=== PATIENT | male | born 1975 | race Caucasian/White ===

== ENCOUNTER 2021-05-25 21:56 | Emergency (ER) | payer OTHER, MEDICAID, SELFPAY ==
[2021-05-25 22:14] VITALS: BP 137/85; PULSE 102; RESP 16; TEMP 37; O2SAT 99; BMI 27.7
--- NOTE | 2021-05-26 01:22 | ED_ITS ---
HPI - Skin/Abscess/Foreign Bdy General Chief complaint: Skin/Abscess/Foreign Body Stated complaint: lump on right arm Time Seen by Provider: 05/26/21 01:22 Source: patient Mode of arrival: Ambulatory Limitations: no limitations History of Present Illness HPI narrative: Patient has a lump on his right forearm. Patient states he has had chronic swelling at that location. He bumped it multiple times recently it became more swollen and red and inflamed and painful. Swelling is improved somewhat but is still present. He does not appreciate any fevers. He has had some localized swelling but no swelling at the elbow joint itself and not extending up and down the arm. Patient denies other medical issues. He does occasionally use IV methamphetamines. He does not believe he has injected at that location in the past. He denies any allergies to medications. No major surgeries. Daily smoker. Occasional alcohol. Related Data Previous Rx's Medication Instructions Recorded sulfamethoxazole 800 1 tab PO Q12H #20 tab 05/26/21 mg-trimethoprim 160 mg tablet (Bactrim DS) Allergies Allergy/AdvReac Type Severity Reaction Status Date / Time No Known Drug Allergies Allergy Verified 05/25/21 22:13 Review of Systems Review of Systems ROS Unobtainable: All systems reviewed & are unremarkable except as noted in HPI and below Patient History Social History Smoking Status: Current every day smoker Smoking Status: Current every day smoker alcohol intake frequency: a few times a month Substance Use Type: IV drugs and methamphetamine Exam Narrative Exam Narrative: GENERAL: Alert and oriented x three, male in mild distress. HEENT: Head normocephalic, atraumatic, EOMI, pupils reactive, face symmetric, moist mucous membranes NECK: Supple, full range of motion CARDIOVASCULAR: Regular rate and rhythm without murmurs, rubs or gallops. RESPIRATORY: Breath sounds equal bilaterally, no wheezes rales or rhonchi. ABDOMEN: Soft, nontender. Normoactive bowel sounds all 4 quadrants. No guarding or rebound, rigidity, no mass EXTREMITIES: Normal range of motion, no clubbing or edema. Neurovascularly intact. Patient has localized swelling, erythema and fluctuance of the proximal forearm approximately 4 cm from the elbow. Patient does not have any obvious wounds. Area is tender. There is some slight warmth. Patient is otherwise normal motion. No bony tenderness. The joint itself does not appear swollen. Patient has 5/5 muscle strength with normal sensation. In 2+ radial pulse. NEUROLOGICAL: Cranial nerves II through XII grossly intact. Moving all extremities SKIN: Warm, dry, no petechiae, no rashes or lesions otherwise noted. Initial Vital Signs Initial Vital Signs: Vital Signs Temperature 98.6 F 05/25/21 22:14 Pulse Rate 102 H 05/25/21 22:14 Respiratory Rate 16 05/25/21 22:14 Blood Pressure 137/85 05/25/21 22:14 Pulse Oximetry 99 05/25/21 22:14 Procedures Abscess I/D I&D #1: Site: upper extremity (right forearm) Side (if applicable): right Sedation/analgesia: none Local Anesthetic: lidocaine 1% Technique: needle aspiration and incised with #11 blade Amount of fluid expressed (mL): 4 Irrigation: Yes Packing used?: none Course Orders Ordered: ED Orders 05/26/21 01:30 XR elbow RT min 3V Stat 05/26/21 02:15 Wound Culture and Gram Stain Stat Discontinued Medications Ibuprofen (Ibuprofen 400 Mg Tablet) 800 mg PO NOW ONE Stop: 05/26/21 02:10 Last Admin: 05/26/21 02:15 Dose: 800 mg Documented by: LEYDI Lidocaine/Sodium Bicarbonate (Lido 1%/Sod Bicarb 8.4% (10ml) 10 Ml Syringe) 10 ml INJ NOW ONE Stop: 05/26/21 01:31 Last Admin: 05/26/21 02:15 Dose: 10 ml Documented by: LEYDI Trimethoprim/Sulfamethoxazole (Trimeth/Sulfa 160/800 Prepack) 1 bottle MISC SEEINSTR ONE Stop: 05/26/21 01:31 Last Admin: 05/26/21 02:16 Dose: Not Given Documented by: LEYDI Trimethoprim/Sulfamethoxazole (Trimeth/Sulfa 160/800 (Ds) Tablet) 1 tab PO NOW ONE Stop: 05/26/21 01:59 Last Admin: 05/26/21 02:15 Dose: 1 tab Documented by: LEYDI Vital Signs Vital signs: Vital Signs - 8 hr 05/25/21 22:14 05/26/21 02:32 Temperature 98.6 F 98.2 F Pulse Rate 102 H 80 Respiratory Rate 16 16 Blood Pressure 137/85 129/77 Pulse Oximetry 99 100 MDM - Skin/Abscess/Foreign Bdy Imaging Data bedside US: My Impression: Patient does appear to have non complex fluid collection but there appears to be some hyperechoic change at the base. Unclear if this is soft tissue changes or possibly foreign body. Extremity x-ray #1: My Impression: prelim, no foreign body. No fx. No air. [facility] Narrative Medical decision making narrative: This is 45 year old male with abscess in left forearm with localized cellulitis. I&D with good drainage. Culture sent. Discharge Plan Departure Patient Disposition: Home Clinical Impression: Abscess of skin or subcutaneous tissue Instructions: DI for Skin Abscess Activity Restrictions/Additional Instructions: Follow-up for recheck in the next 2-3 days if not significantly improving. You may take Tylenol up to a 1000 mg every 8 hours and/or ibuprofen up to 800 mg every 8 hours. Take antibiotics until completely gone. Prescription sent to [facility] in [place]. Wound Care: Keep wound(s) clean and dry. Wash daily with soap and water only. Do not use over the counter products (alcohol or peroxide)on the wounds unless instructed by a physician. If wound condition worsens (increased/expanding redness, developing fluid blisters, or worsening pain), either contact your doctor for an urgent re- assessment , or return to the Emergency Department. Return if fever greater than 100.4 Fahrenheit, increased swelling, increasing pain or worsening symptoms such as increased discharge or spreading redness. Use warm compresses 3 times daily for 20 minutes to the affected area. If there is packing in place do not pull it out, if it falls out do not try to replace it. Prescriptions: New sulfamethoxazole-trimethoprim [Bactrim DS] 800-160 mg tablet 1 tab PO Q12H Qty: 20 RF: 0
--- NOTE | 2021-05-26 01:30 | DI.RAD.S_ITS ---
PROCEDURE: XR ELBOW RT MIN 3V INDICATIONS: abscess prox forearm, r/o foreign body TECHNIQUE: 3 views of the elbow were acquired. COMPARISON: None. FINDINGS: Bones: No fractures or dislocations. No suspicious bony lesions. Soft tissues: No elbow joint effusion. No suspicious soft tissue calcifications. IMPRESSION: No fracture. No osseous lesion. If symptoms and/or clinical suspicion for pathology persists, further assessment with repeat radiographs (7-10 days) or advanced imaging (e.g. CT, MRI or bone scan) should be considered. Dictated by: Noreen Farooq MD, PhD on 05/26/2021 at 7:43 Approved by: Noreen Farooq MD, PhD on 05/26/2021 at 7:43
[2021-05-26] MEDS: TRIMETH/SULFA 160/800 (DS) TABLET 1 TAB PO (02:15)
[2021-05-26] MEDS: IBUPROFEN 400 MG TABLET 800 MG PO (02:15)
[2021-05-26] MEDS: LIDO 1%/SOD BICARB 8.4% (10ML) 10 ML SYRINGE INJ (02:15)
[2021-05-26 02:32] VITALS: BP 129/77; PULSE 80; RESP 16; TEMP 36.8; O2SAT 100
== END 2021-05-26 02:36 | disposition home or self-care (01) ==
PROVIDERS: Emergency Provider Emergency Medicine
DX: L02.413 Cutaneous abscess of right upper limb (principal)
CPT/HCPCS: 10060; 73080; 87070; 87077; 87147; 87186; 87205; 99283; 99284